=== PATIENT | female | born 1980 | race Caucasian/White ===

== ENCOUNTER 2020-11-10 10:20 | Emergency (ER) | payer MEDICAID ==
[~2020-11-10] VITALS: Ht 165.1 cm; Wt 70.0 kg
[2020-11-10] MEDS ORDERED: KETOROLAC 30MG/ML VIAL IM ONE (11:00)
[2020-11-10 11:07] VITALS: BP 115/54
[2020-11-10] MEDS ORDERED: APIX5TAB PO (12:05)
[2020-11-10] MEDS ORDERED: ENOXAPARIN 60MG/0.6ML SYR SUBCUT ONE (12:30)
[2020-11-10] MEDS ORDERED: LOV40 SQ (12:35)
[2020-11-10] MEDS ORDERED: ENOXAPARIN 80MG/0.8ML SYR SUBCUT ONE (12:45)
== END 2020-11-10 12:55 | disposition home or self-care (01) ==
LOC: ER 10:44
DX: I82.491 Acute embolism and thrombosis of other specified deep vein of right lower extremity (principal); M79.604 Pain in right leg; Z98.890 Other specified postprocedural states
CPT/HCPCS: 93971; 96372; 99284; J1650; J1885

== ENCOUNTER 2020-11-22 16:40 | Emergency (ER) | payer MEDICAID ==
[~2020-11-22] VITALS: Ht 165.1 cm; Wt 72.0 kg
[~2020-11-22 16:40] MED LIST: LOV40 SQ
[2020-11-22 17:56] LABS: BASOPHILS % 0.6 % (0.0-2.0); EOSINOPHILS % 5.1 % (0.0-5.0); HEMATOCRIT. 34.6 % (36.0-48.0); HEMOGLOBIN. 11.6 g/dL (12.0-16.0); LYMPHOCYTES % 30.8 % (20.0-50.0); MEAN CORPUSCULAR HEMOGLOBIN 29.2 pg (28.0-32.0); MEAN CORPUSCULAR VOLUME 87.3 fL (81.0-99.0); MEAN PLATELET VOLUME 8.7 fl (7.4-10.4); MONOCYTES % 6.2 % (2.0-8.0); NEUTROPHILS % 57.3 % (40.0-76.0); PLATELET 243 x1000/uL (130-400); RED BLOOD CELL COUNT 3.96 mill/uL (4.2-5.4); RED CELL DISTRIBUTION WIDTH 12.5 % (11.6-14.6)
[2020-11-22 18:03] LABS: CHLORIDE 105 mEq/L (98-107)
[2020-11-22 18:06] LABS: INR 1.1; PROTHROMBIN TIME 11.3 sec (9.6-11.0)
[2020-11-22 18:15] LABS: HCG SCREEN NEGATIVE
[2020-11-22] MEDS ORDERED: IBUP-2029 MT (20:21)
[2020-11-22 20:36] VITALS: BP 110/50
== END 2020-11-22 20:44 | disposition home or self-care (01) ==
LOC: ER 16:40
DX: I80.251 Phlebitis and thrombophlebitis of right calf muscular vein (principal); Z98.890 Other specified postprocedural states; Z86.39 Personal history of other endocrine, nutritional and metabolic disease
CPT/HCPCS: 36415; 80053; 84703; 85025; 93005; 93971; 99285

== ENCOUNTER → 2022-01-23 | Emergency (ER) | payer MEDICAID ==
[~2022-01-23] VITALS: Ht 165.1 cm; Wt 75.0 kg
[~2022-01-23] MED LIST changes: +CYCL10TA21 MT; +CYCLOBENZAPRINE 10MG TABLET PO ONE; +ENOX40SY27 SQ; +IBUP-2029 MT; +LIDOCAINE 5% PATCH TOP SCH; -LOV40 SQ; +NAPR-1176 MT
[2022-01-23 16:08] VITALS: BP 101/80
== END | disposition home or self-care (01) ==
LOC: ER 15:48
DX: M54.50 Low back pain, unspecified (principal); Z86.39 Personal history of other endocrine, nutritional and metabolic disease; Z98.890 Other specified postprocedural states
CPT/HCPCS: 99283